=== PATIENT | male | born 1965 | race Caucasian/White ===

== ENCOUNTER 2020-08-05 14:03 | Emergency (ER) | payer MEDICAID, SELFPAY ==
--- NOTE | 2020-08-05 | XR_ITS ---
EXAMINATION: XR HAND, LEFT CLINICAL INFORMATION: Crush injury COMPARISON: None TECHNIQUE: PA, lateral, and oblique views of the left hand. FINDINGS: There is a comminuted minimally displaced fracture of the distal tuft of the third finger. There is adjacent soft tissue swelling. No other fracture is seen. Joint spaces are normal. Soft tissues are otherwise normal. IMPRESSION: Comminuted distal tuft fracture of the left third finger.
[2020-08-05 14:55] VITALS: BP 178/80; PULSE 69; RESP 20; TEMP 36.5; O2SAT 96; BMI 37.9
[2020-08-05] MEDS: ondansetron HCL 4 MG/2 ML VIAL IVPUSH (15:23)
[2020-08-05] MEDS: ceFAZolin Sodium/Dextrose,Iso 2 GM/50 ML PIGGYBACK IV (15:23)
[2020-08-05] MEDS: Morphine Sulfate 4 MG/ML CARTRIDGE IVPUSH (15:23)
[2020-08-05] MEDS: 0.9 % Sodium Chloride 1,000 ML 999 ML IVCONT (15:23)
[2020-08-05] MEDS: Lidocaine HCl 1 % MPF 5 ML VIAL 10 ML SUBCUT (15:24)
--- NOTE | 2020-08-05 16:02 | ED_ITS ---
HPI - Extremity Problem General Chief complaint: Extremity Injury, Upper <Kolby Bob NP - Last Filed: 08/05/20 18:23> Stated complaint: HAND LAC <Kolby Bob NP - Last Filed: 08/05/20 18:23> Time Seen by Provider: 08/05/20 14:41 <Kolby Bob NP - Last Filed: 08/05/20 18:23> Source: patient <Kolby Bob NP - Last Filed: 08/05/20 18:23> Mode of arrival: ambulatory <Kolby Bob NP - Last Filed: 08/05/20 18:23> Limitations: no limitations <Kolby Bob NP - Last Filed: 08/05/20 18:23> History of Present Illness HPI Narrative: 55-year-old male with history of dmy-otvexvc-eeccgtekw diabetes, right knee surgery presenting today with complaint of injury to the left middle finger while working on his car. The truck was left on a [place] in the pipe under knee gave out and hit him directly on the finger in addition to the drill that he had. Up-to-date as in tetanus vaccine. In fact he was here July 29 while working as same car he got a piece of metal stuck in his left upper biceps area which she has appointment with orthopedics to have it removed. He is already on prophylactic antibiotics for this. He is on Keflex and doxycycline already. Aside from the finger he denies any other injury. <Kolby Bob NP - Last Filed: 08/05/20 18:23> Onset (ago): minute(s) <Kolby Bob NP - Last Filed: 08/05/20 18:23> Pain Consistency: constant <Kolby Bob NP - Last Filed: 08/05/20 18:23> Location: left <Kolby Bob NP - Last Filed: 08/05/20 18:23> Severity scale (1-10): 10 <Kolby Bob NP - Last Filed: 08/05/20 18:23> Quality: aching and crushing <Kolby Bob NP - Last Filed: 08/05/20 18:23> Relieving factors: movement <Kolby Bob NP - Last Filed: 08/05/20 18:23> Exacerbating factors: nothing <Kolby Bob NP - Last Filed: 08/05/20 18:23> Related Data Home medications: Previous Rx's Medication Instructions Recorded ibuprofen 800 mg PO Q8H PRN #30 tab 08/05/20 oxycodone 5 mg PO Q8H PRN #14 tab 08/05/20 <Kolby Bob NP - Last Filed: 08/05/20 18:23> Allergies/Adverse reactions: Allergies Allergy/AdvReac Type Severity Reaction Status Date / Time shrimp [SHRIMP] Allergy Intermediate SWELLING Verified 08/05/20 15:56 <Kolby Bob NP - Last Filed: 08/05/20 18:23> Review of Systems Review of Systems: Constitutional: No Weight loss, No Fever, No Chills, No Night Sweats, No Fatigue, No Malaise ENT/Mouth: No Hearing loss, No Ear Pain, No Nasal Congestion, No Sinus Pain, No Hoarseness, No sore throat, No Rhinorrhea, No Swallowing Difficulty Eyes: No Eye Pain, No Swelling, No Redness, No Foreign Body, No Discharge, No Vision Changes Cardiovascular: No Chest Pain, No SOB, No Dyspnea on Exertion, No Orthopnea, No Edema, No Palpitations Respiratory: No Cough, No Sputum, No Wheezing, No Smoke Exposure, No Dyspnea Gastrointestinal: No Nausea, No Vomiting, No Diarrhea, No Constipation, No abdominal Pain, No Hematochezia, No Melena Genitourinary: no irregular bleeding, No Dysuria, No Urinary Frequency, No Hematuria, No Urinary Incontinence, No Urgency, No Flank Pain, No Urinary Flow Changes, No Hesitancy Musculoskeletal: No joint pain, No Myalgias, No Joint Swelling Skin: No Skin Lesions, No rash Neuro: No Weakness, No Numbness, No Paresthesias, No Loss of Consciousness, No Dizziness, No Headache Psych: No Anxiety/Panic, No Depression, No SI/HI/AH/VH, No Social Issues, Heme/Lymph: No Bruising, No Bleeding,No Lymphadenopathy <Kolby Bob NP - Last Filed: 08/05/20 18:23> [facility] Past Medical History Attestation statement: The following information was validated with the patient. <Kolby Bob NP - Last Filed: 08/05/20 18:23> Medical History: Medical History (Updated 10/07/20 @ 18:03 by Kolby Bob NP) Diabetes <Kolby Bob NP - Last Filed: 08/05/20 18:23> Surgical History: Surgical History (Updated 08/05/20 @ 14:58 by Anthony Vargas) No significant past surgical history <Kolby Bob NP - Last Filed: 08/05/20 18:23> Social History Social History: Social History Alcohol intake: unknown Smoking Status: Current every day smoker Smoked in Last 30 Days: Yes Use of substances other than those prescribed or required for medical reasons: No Advance Directives: No Advance Directives Information Provided: No <Kolby Bob NP - Last Filed: 08/05/20 18:23> Physical Exam Vital Signs and I&O and Narrative: Vital Signs and I&O: Vital Signs Temp 97.7 F 08/05/20 14:55 Pulse 67 08/05/20 16:17 Resp 16 08/05/20 16:17 BP 126/80 08/05/20 16:17 Pulse Ox 96 08/05/20 16:17 Intake & Output 08/05/20 08/05/20 08/06/20 06:59 18:59 06:59 Intake Total 1050 / 1050 Balance 1050 / 1050 Weight 100.244 kg Intake: Intake, IV Amoun t 1050 / 1050 ceFAZolin Sodi um/Dextrose,Iso 2 50 / 50 gm In 50 ml @ 100 mls/hr IV ONCE ONE Rx#:H [id number] 0.9 % Sodium C hloride 1,000 ml 1000 / 1000 @ 999 mls/hr I VCONT .Q1H1M [facility] Rx#:[id number] Body Mass Index 37.9 <Kolby Bob NP - Last Filed: 08/05/20 18:23> Vital Signs and I&O: Vital Signs Temp 97.7 F 08/05/20 14:55 Pulse 67 08/05/20 16:17 Resp 16 08/05/20 16:17 BP 126/80 08/05/20 16:17 Pulse Ox 96 08/05/20 16:17 Intake & Output 08/05/20 08/05/20 08/06/20 06:59 18:59 06:59 Intake Total 1050 / 1050 Balance 1050 / 1050 Weight 100.244 kg Intake: Intake, IV Amoun t 105 / 1050 ceFAZolin Sodi um/Dextrose,Iso 2 50 / 50 gm In 50 ml @ 100 mls/hr IV ONCE ONE Rx#:H [id number] 0.9 % Sodium C hloride 1,000 ml 1000 / 1000 @ 999 mls/hr I VCONT .Q1H1M [facility] Rx#:[id number] Body Mass Index 37.9 <Olvin Her DO - Last Filed: 08/05/20 19:44> Const: General: cooperative and healthy appearing; No acute distress or intoxicated appearing <[facility] NAYELY Bob - Last Filed: 08/05/20 18:23> Nutritional Appearance: average body habitus <[facility] NAYELY Bob - Last Filed: 08/05/20 18:23> HENMT: Head: Yes normal to inspection <[facility] NAYELY Bob - Last Filed: 08/05/20 18:23> Ears: hearing grossly normal bilaterally <[facility] NAYELY Bob - Last Filed: 08/05/20 18:23> Neck: Neck: Yes normal visual inspection, No positive Brudzinski's sign, No positive Kernig's sign and No tender <[facility] NAYELY Bob - Last Filed: 08/05/20 18:23> Thyroid: Thyroid normal <[facility] NAYELY Bob - Last Filed: 08/05/20 18:23> Chest: Chest palpation & inspection: normal inspection of the chest <[facility] NAYELY Bob - Last Filed: 08/05/20 18:23> Resp: Effort & Inspection: normal respiratory effort <[facility] NAYELY Bob - Last Filed: 08/05/20 18:23> Cardio: Jugular venous distension: no JVD <[facility] NAYELY Bob - Last Filed: 08/05/20 18:23> : General: Yes no CVA tenderness <[facility] NAYELY Bob - Last Filed: 08/05/20 18:23> Back/Spine/Pelvis: Back: no CVA tenderness <[facility] NAYELY Bob - Last Filed: 08/05/20 18:23> Skin: General skin exam: no rashes or lesions noted <[facility] NAYELY Bob - Last Filed: 08/05/20 18:23> Extrem: General: Yes normal to inspection <Kolby Bob HYDRAULIC BULL RIVETER OPERATOR - Last Filed: 08/05/20 18:23> Right lower extremity: normal to inspection, full ROM ( Slowly but surely able to fully flex and make a fist.) and normal capillary refill (+ Pulses on Doppler. Doppler within normal limits. Pulse ox 100%) <Kolbyjuliano Bob HYDRAULIC BULL RIVETER OPERATOR - Last Filed: 08/05/20 18:23> Course Reevaluation(s) Reevaluation #1: case discussed with orthopedics Kwame covering Dr. Vivar defer to hands. <Kolbyjuliano Bob HYDRAULIC BULL RIVETER OPERATOR - Last Filed: 08/05/20 18:23> Reevaluation #2: CDW Dr. Warren via transfer line at [facility]. Recommendation for loosely placed sutures and splint and will see him in office tomorrow. <Kolby Bob HYDRAULIC BULL RIVETER OPERATOR - Last Filed: 08/05/20 18:23> Consultations Consultation #1: Orthopedics C <Kolby Floodevon HYDRAULIC BULL RIVETER OPERATOR - Last Filed: 08/05/20 18:23> Consultation #2: Dr. Warren [facility] [place] <Kolbyjuliano Bob HYDRAULIC BULL RIVETER OPERATOR - Last Filed: 08/05/20 18:23> Procedures Laceration Laceration 1: Site: hand (3rd finger) <Kolby Bob HYDRAULIC BULL RIVETER OPERATOR - Last Filed: 08/05/20 18:23> Side (If applicable): left <Kolby Bob HYDRAULIC BULL RIVETER OPERATOR - Last Filed: 08/05/20 18:23> Description: linear, flap, irregular and contaminated <Kolbyjuliano Floodevon HYDRAULIC BULL RIVETER OPERATOR - Last Filed: 08/05/20 18:23> Depth: simple, single layer <Kolbyjuliano Floodevon HYDRAULIC BULL RIVETER OPERATOR - Last Filed: 08/05/20 18:23> Local Anesthetic: lidocaine 1% <Kolbyjuliano Floodevon HYDRAULIC BULL RIVETER OPERATOR - Last Filed: 08/05/20 18:23> Amount of anesthesia used (mL): 10 <Kolbyjuliano Floodevon HYDRAULIC BULL RIVETER OPERATOR - Last Filed: 08/05/20 18:23> Pre-repair: wound explored, irrigated extensively, extensive debridement and wound margins revised <Kolby Bob, HYDRAULIC BULL RIVETER OPERATOR - Last Filed: 08/05/20 18:23> Skin layer closed with: nylon <Kolby Bob, HYDRAULIC BULL RIVETER OPERATOR - Last Filed: 08/05/20 18:23> Size (cm): 5-0 <Kolby NAYELY Bob - Last Filed: 08/05/20 18:23> Number of sutures: 12 <Kolby NAYELY Bob - Last Filed: 08/05/20 18:23> Technique: simple, interrupted <Kolby NAYELY Bob - Last Filed: 08/05/20 18:23> Subcutaneous layer closed with: chromic gut <Kolbyjuliano Bob NP - Last Filed: 08/05/20 18:23> Size: 5-0 <Kolby FloodNAYELY barnard - Last Filed: 08/05/20 18:23> MDM - Extremity (Nontraumatic) Imaging Data Hand xray, Left : Radiologist's impression: [place] [id number] XRay Report Signed Patient: Murtaza Mullen#: [id number] : 1965Acct:[id number] Age/Sex: 55 / MADM Date: 08/05/20 Loc: HO.ED Attending Dr: Ordering Physician: Kolby Bob NP Date of Service: 08/05/20 Procedure(s): XR hand LT min 3V Accession Number(s): [id number] cc: ~ EXAMINATION: XR HAND, LEFT CLINICAL INFORMATION: Crush injury COMPARISON: None TECHNIQUE: PA, lateral, and oblique views of the left hand. FINDINGS: There is a comminuted minimally displaced fracture of the distal tuft of the third finger. There is adjacent soft tissue swelling. No other fracture is seen. Joint spaces are normal. Soft tissues are otherwise normal. IMPRESSION: Comminuted distal tuft fracture of the left third finger. Dictated By:RAYA COLE MD Signed By:<Electronically signed by RAYA COLE MD in OV>08/05/20 1518 DD/ 1505 TD/TT: Licensed Investment Sales Assistant: KENNETH <Kolbyjuliano Bob NP - Last Filed: 08/05/20 18:23> Discharge Plan Discharge Clinical Impression: Laceration, Open fracture of tuft of distal phalanx of finger Flexor tendon laceration, finger, open wound Qualifiers: Encounter type: initial encounter Qualified Code(s): S56.129A - Laceration of flexor muscle, fascia and tendon of unspecified finger at forearm level, initial encounter <Kolby Bob NP - Last Filed: 08/05/20 18:23> Patient Disposition: Home, Self-Care <Kolby Bob NP - Last Filed: 08/05/20 18:23> Instructions: Finger Fracture (ED), Finger Laceration (ED) <Kolby Bob NP - Last Filed: 08/05/20 18:23> Additional Instructions: please continue to take antibiotic as previously prescribed Please follow-up with Dr. Warren tomorrow Hand surgery for further intervention. This is very important for you as I suspect there is a tendon injury as well as open fracture which he received antibiotics. Return if any concerns or worsening symptoms otherwise leave splint in place and to follow-up with hand surgery. <Kolby Bob NP - Last Filed: 08/05/20 18:23> Prescriptions: New oxycodone 5 mg tablet 5 mg PO Q8H PRN (Reason: pain) Qty: 14 RF: 0 ibuprofen 800 mg tablet 800 mg PO Q8H PRN (Reason: Pain) Qty: 30 RF: 0 <Kolby Bob NP - Last Filed: 08/05/20 18:23> Referrals: Anatoliy Warren MD [Physician] - 1 day (Comminuted distal tuft fracture of the left third finger ) <Kolby Bob NP - Last Filed: 08/05/20 18:23> Interventions: ED Discharge Assessment Last Done: 08/05/20 18:15 <Kolby Bob NP - Last Filed: 08/05/20 18:23> Discharge Date/Time: 08/05/20 19:02 <Kolby Bob NP - Last Filed: 08/05/20 18:23>
[2020-08-05 16:17] VITALS: BP 126/80; PULSE 67; RESP 16; O2SAT 96
--- NOTE | 2020-08-05 16:42 | PC.NURSE ---
DISPOSITION UPDATED ON PT [facility] PC-C PLAN FOR CLOSURE OF OPEN WOUND, SPLINT AND FOLLOW UP WITH HAND SURGEON IN THE OFFICE TMR
[2020-08-05] MEDS: oxyCODONE HCl Immed Release 5 MG TABLET 10 MG PO (17:18)
[2020-08-05] MEDS: Lidocaine HCl 1 % MPF 5 ML VIAL SUBCUT (17:19)
--- NOTE | 2020-08-05 17:51 | PC.NURSE ---
JOSE ADLER AT BEDSIDE FOR SUTURING.
--- NOTE | 2020-08-05 18:59 | PC.NURSE ---
dsd placed, no active bleeding noted volar splint place in natural position for protection
== END 2020-08-05 19:02 | disposition home or self-care (01) ==
PROVIDERS: Emergency Provider Emergency Medicine; PCP Internal Medicine
DX: S56.124A Laceration of flexor muscle, fascia and tendon of left middle finger at forearm level, initial encounter (principal); S62.633B Displaced fracture of distal phalanx of left middle finger, initial encounter for open fracture; W20.8XXA Other cause of strike by thrown, projected or falling object, initial encounter; E11.9 Type 2 diabetes mellitus without complications; F17.200 Nicotine dependence, unspecified, uncomplicated; Y93.89 Activity, other specified; Y92.015 Private garage of single-family (private) house as the place of occurrence of the external cause; Y99.8 Other external cause status
CPT/HCPCS: 12002; 73130; 96361; 96365; 96375; 99284; J0690; J2270; J2405